=== PATIENT | female | born 1950 | race Caucasian/White ===

== ENCOUNTER 2018-09-20 14:09 | Observation (INO) ==
--- NOTE | 2018-09-20 14:36 | Emergency Department Note ---
Disposition Clinical Impression: Chest pain Qualifiers: Chest pain type: unspecified Qualified Code(s): R07.9 - Chest pain, unspecified Disposition: Admitted As Inpatient Condition: Good Referrals: Noman Lazar MD [Primary Care Provider] - Forms: ED Satisfaction Letter Time of Disposition: 16:09 Chest Pain HPI - General Chief Complaint: ED Chest Pain Stated Complaint: chest pain into bilat jaw Time Seen by Provider: 09/20/18 14:13 Source: patient Mode of arrival: ambulatory Limitations: no limitations Vital Signs Reviewed: Yes Nursing Notes Reviewed: Yes - History of Present Illness HPI Narrative: 68-year-old female with history of borderline diabetes, hypertension, hyperlip idemia, family history of cardiovascular disease arrives to the emergency department complaining of retrosternal chest pain radiating to the left side of her chest and into her jaw bilaterally that started roughly one half hour prior to arrival to the emergency department. No associated shortness of breath, diaphoresis or abdominal pain or nausea. Patient states she has never had anything like this in the past. No previous cardiovascular testing to include no stress testing, no cardiac stenting. The patient states she took 1 baby aspirin home. She denies any other complaints at this time including unilateral excellent, history of DVT or PE, hemoptysis, recent surgeries or immobilization s. No other acute complaints noted at this time. Patient is resting comfortably and she is chest pain-free at this time. Severity scale (1-10): 3 - Related Data Home Medications Medication Instructions Recorded Confirmed Aspirin 81 mg PO DAILY 04/23/16 07/22/16 Citalopram [CeleXA] 20 mg PO DAILY 04/23/16 07/22/16 Cyanocobalamin (Vitamin B-12) 1,000 mcg SL DAILY 04/23/16 07/22/16 [Vitamin B-12] Glucosamn/Condroitn/C/Mn/[place] 1,500 mg PO DAILY 04/23/16 07/22/16 [[facility] Glucosamine Chondroit Cplt] Losartan/HCTZ [Hyzaar 50-12.5 1 each PO DAILY 04/23/16 07/22/16 Tablet] Melatonin 10 mg SL HS PRN 04/23/16 07/22/16 Meloxicam [Mobic] 15 mg PO DAILY 04/23/16 07/22/16 Multivitamin [Multivitamins] 1 tab PO DAILY 04/23/16 07/22/16 [place]-3/Dha/Epa/Fish Oil [Fish Oil] 1,000 mg PO DAILY 04/23/16 07/22/16 Omeprazole [PriLOSEC] 20 mg PO DAILY 04/23/16 07/22/16 Potassium Citrate [Urocit-K] 20 meq PO BID 07/22/16 07/22/16 Pravastatin Sodium [Pravachol] 40 mg PO DAILY 07/22/16 07/22/16 Solifenacin Succinate [Vesicare] 10 mg PO DAILY 07/22/16 07/22/16 Allergies Allergy/AdvReac Type Severity Reaction Status Date / Time Nickel Allergy See Unverified 04/23/16 08:13 Comments Sulfa (Sulfonamide Allergy Hives Unverified 04/23/16 08:13 Antibiotics) heparin AdvReac See Unverified 04/23/16 08:13 Comments All systems ED: reviewed and negative except as stated. Constitutional: Denies: fever, chills, weakness ENT ED: Denies: dysphagia Cardiovascular: Reports: chest pain. Denies: palpitations, dyspnea on exertion, orthopnea, edema Respiratory: Denies: cough, dyspnea, sputum production Gastrointestinal: Denies: abdominal pain, nausea, vomiting Genitourinary: Denies: urgency, dysuria Musculoskeletal: Denies: back pain, neck pain Integumentary: Denies: rash Neurological: Denies: headache Chest Pain PMH - Past Medical History Medical history: Reports: arthritis, hyperlipidemia, hypertension Surgical history: Reports: appendectomy, , cholecystectomy, knee replacement, orthopedic, other Psychiatric history: Reports: depression - Social History Smoking Status: Never smoker Alcohol use: Reports: none Drug use: Reports: none Physical Exam - General Limitations: no limitations General appearance: alert, in no apparent distress - Head Head exam: atraumatic, normocephalic, normal inspection - Eye Eye exam: Present: normal appearance, PERRL, EOMI - ENT ENT exam: normal exam, normal oropharynx, mucous membranes moist - Neck Neck exam: Present: normal inspection, full ROM, trachea midline - Chest Chest inspection: Present: normal inspection - Respiratory Respiratory exam: Present: normal lung sounds bilaterally - Cardiovascular Cardiovascular exam: Present: regular rate, normal rhythm, normal heart sounds - Abdominal Exam Abdominal exam: Present: soft, Non-Tender. Absent: tenderness, distention, guarding, rebound, rigidity - Extremities Exam Extremities exam: Present: normal inspection, full ROM. Absent: tenderness, pedal edema - Neurological Exam Neurological exam: Present: alert, oriented X3 - Skin Skin exam: Present: warm, dry, intact, normal color Course Vital Signs Temperature 98.1 F 09/20/18 14:12 Pulse Rate 94 09/20/18 14:12 Respiratory Rate 16 09/20/18 14:12 Blood Pressure 130/82 09/20/18 14:12 O2 Sat by Pulse Oximetry 97 09/20/18 14:12 Temperature 98.1 F 09/20/18 14:12 Pulse Rate 89 09/20/18 14:29 Respiratory Rate 16 09/20/18 14:29 Blood Pressure 111/71 09/20/18 14:29 O2 Sat by Pulse Oximetry 99 09/20/18 14:29 Oxygen Delivery Oxygen Delivery Room Air Chest Pain - MDM Narrative Medical decision making narrative: Patient's workup in the emergency department demonstrates findings concerning for ACS given the patient's symptoms. Workup in the emergency department observed subcutaneous process. Given the patient's symptoms we will admit the patient to the hospital. She is chest pain-free. - Lab Data Lab results reviewed: Yes I reviewed the patient's lab results. Result diagrams: 09/20/18 15:19 09/20/18 14:25 Lab Results 09/20/18 09/20/18 09/20/18 Range/Units 14:15 14:25 14:36 WBC (4.3-11.1) K/mcL RBC (3.82-4.97) M/mcL Hgb (11.5-15.4) g/dL Hct (35.3-44.9) % MCV (83.0-100.0) fL MCH (28.0-33.3) pg MCHC (31.6-35.5) g/dL RDW (11.5-14.5) % Plt Count MPV Immature Gran % (0-4) % Seg Neutrophils % % Lymphocytes % % Monocytes % % Eosinophils % % Basophils % % Neutrophils # (1.6-8.9) K/mcL Lymphocytes # (0.6-4.6) K/mcL Monocytes # (0.0-1.3) K/mcL Eosinophils # (0.0-0.6) K/mcL Basophils # (0.0-0.2) K/mcL Plt Count ,Citrate (140-400) K/mcL PT TNP INR TNP APTT TNP Sodium 138 (136-145) mEq/L Potassium 4.1 (3.5-5.1) mEq/L Chloride 102 (98-107) mEq/L Carbon Dioxide 28 (23-29) mEq/L BUN 12 (8-23) mg/dL Creatinine 0.93 (0.60-1.20) mg/dL Est GFR ( Amer) > 60 (> 60) Est GFR (Non-Af Amer) > 60 (> 60) BUN/Creatinine Ratio 13 (6-26) Glucose 98 (70-105) mg/dL Calculated Osmolality 286 (280-300) Calcium 9.3 (8.6-10.3) mg/dL Troponin I < 0.03 (< 0.04) ng/mL Specimen Rejected Clotted 09/20/18 09/20/18 09/20/18 Range/Units 15:19 15:19 15:19 WBC 7.2 (4.3-11.1) K/mcL RBC 3.89 (3.82-4.97) M/mcL Hgb 11.8 (11.5-15.4) g/dL Hct 36.7 (35.3-44.9) % MCV 94.3 (83.0-100.0) fL MCH 30.3 (28.0-33.3) pg MCHC 32.2 (31.6-35.5) g/dL RDW 12.2 (11.5-14.5) % Plt Count TNP MPV TNP 8.8 L Immature Gran % 0.3 (0-4) % Seg Neutrophils % 53.6 % Lymphocytes % 35.6 % Monocytes % 7.5 % Eosinophils % 2.2 % Basophils % 0.8 % Neutrophils # 3.8 (1.6-8.9) K/mcL Lymphocytes # 2.6 (0.6-4.6) K/mcL Monocytes # 0.5 (0.0-1.3) K/mcL Eosinophils # 0.2 (0.0-0.6) K/mcL Basophils # 0.1 (0.0-0.2) K/mcL Plt Count ,Citrate 216 (140-400) K/mcL PT 10.7 INR 1.0 APTT 32.0 Sodium (136-145) mEq/L Potassium (3.5-5.1) mEq/L Chloride (98-107) mEq/L Carbon Dioxide (23-29) mEq/L BUN (8-23) mg/dL Creatinine (0.60-1.20) mg/dL Est GFR ( Amer) (> 60) Est GFR (Non-Af Amer) (> 60) BUN/Creatinine Ratio (6-26) Glucose (70-105) mg/dL Calculated Osmolality (280-300) Calcium (8.6-10.3) mg/dL Troponin I (< 0.04) ng/mL Specimen Rejected - Radiology Data Radiology results reviewed: Yes I reviewed the patient's radiology results. Chest X-Ray 09/20/18 14:15 IMPRESSION: No radiographic evidence of acute cardiopulmonary process. D/ / Nathaniel Busch MD / Nathaniel Bushc MD Interpreting Provider: Nathaniel Busch MD - EKG Data EKG attestation: Yes I reviewed and interpreted this EKG. EKG results narrative: Heart rate 84 beats for minute. Normal sinus rhythm. No ST elevation or ST depression noted. Inverted T-wave in lead 3 and V1. No acute changes noted.
[2018-09-20 15:10] LABS: BUN/Creatinine Ratio 13 (6-26); Blood Urea Nitrogen 12 mg/dL (8-23); Calcium 9.3 mg/dL (8.6-10.3); Carbon Dioxide 28 mEq/L (23-29); Chloride 102 mEq/L (98-107); Glucose 98 mg/dL (70-105); Osmolality,Calculated 286 (280-300); Potassium 4.1 mEq/L (3.5-5.1); Sodium 138 mEq/L (136-145); eGFR For Non-African Americans > 60 (> 60)
[2018-09-20 15:12] LABS: Troponin I < 0.03 ng/mL (< 0.04)
[2018-09-20 15:32] LABS: Basophils # 0.1 K/mcL (0.0-0.2); Basophils % 0.8 %; Eosinophils # 0.2 K/mcL (0.0-0.6); Eosinophils % 2.2 %; Hematocrit 36.7 % (35.3-44.9); Hemoglobin 11.8 g/dL (11.5-15.4); Immature Granulocytes % 0.3 % (0-4); Lymphocytes # 2.6 K/mcL (0.6-4.6); Lymphocytes % 35.6 %; Mean Corpuscular HGB Conc 32.2 g/dL (31.6-35.5); Mean Corpuscular Hemoglobin 30.3 pg (28.0-33.3); Mean Corpuscular Volume 94.3 fL (83.0-100.0); Monocytes # 0.5 K/mcL (0.0-1.3); Monocytes % 7.5 %; Neutrophils # 3.8 K/mcL (1.6-8.9); Red Blood Count 3.89 M/mcL (3.82-4.97); Red Cell Distribution Width 12.2 % (11.5-14.5); Segmented Neutrophils % 53.6 %
[2018-09-20 15:37] LABS: Mean Platelet Volume 8.8 fL (9.4-12.4)
[2018-09-20 15:39] LABS: Prothrombin Time 10.7 Seconds (9.4-12.1)
--- NOTE | 2018-09-20 16:01 | Emergency Department Note ---
Disposition Clinical Impression: Chest pain Qualifiers: Chest pain type: unspecified Qualified Code(s): R07.9 - Chest pain, unspecified Disposition: Admitted As Inpatient Condition: Good Referrals: Noman Lazar MD [Primary Care Provider] - Forms: ED Satisfaction Letter General Adult HPI - General Chief complaint: ED Chest Pain Stated complaint: chest pain into bilat jaw Time Seen by Provider: 09/20/18 14:13 Source: patient Mode of arrival: ambulatory Limitations: no limitations - History of Present Illness Pain Scale: 3 - Related Data Home Medications Medication Instructions Recorded Confirmed Aspirin 81 mg PO DAILY 04/23/16 07/22/16 Citalopram [CeleXA] 20 mg PO DAILY 04/23/16 07/22/16 Cyanocobalamin (Vitamin B-12) 1,000 mcg SL DAILY 04/23/16 07/22/16 [Vitamin B-12] Glucosamn/Condroitn/C/Mn/[place] 1,500 mg PO DAILY 04/23/16 07/22/16 [[facility] Glucosamine Chondroit Cplt] Losartan/HCTZ [Hyzaar 50-12.5 1 each PO DAILY 04/23/16 07/22/16 Tablet] Melatonin 10 mg SL HS PRN 04/23/16 07/22/16 Meloxicam [Mobic] 15 mg PO DAILY 04/23/16 07/22/16 Multivitamin [Multivitamins] 1 tab PO DAILY 04/23/16 07/22/16 [place]-3/Dha/Epa/Fish Oil [Fish Oil] 1,000 mg PO DAILY 04/23/16 07/22/16 Omeprazole [PriLOSEC] 20 mg PO DAILY 04/23/16 07/22/16 Potassium Citrate [Urocit-K] 20 meq PO BID 07/22/16 07/22/16 Pravastatin Sodium [Pravachol] 40 mg PO DAILY 07/22/16 07/22/16 Solifenacin Succinate [Vesicare] 10 mg PO DAILY 07/22/16 07/22/16 Allergies Allergy/AdvReac Type Severity Reaction Status Date / Time Nickel Allergy See Unverified 04/23/16 08:13 Comments Sulfa (Sulfonamide Allergy Hives Unverified 04/23/16 08:13 Antibiotics) heparin AdvReac See Unverified 09/20/16 08:13 Comments Constitutional: Denies: fever, chills, weakness ENT ED: Denies: dysphagia Cardiovascular: Reports: chest pain. Denies: palpitations, dyspnea on exertion, orthopnea, edema Respiratory: Denies: cough, dyspnea, sputum production Gastrointestinal: Denies: abdominal pain, nausea, vomiting Genitourinary: Denies: urgency, dysuria Musculoskeletal: Denies: back pain, neck pain Integumentary: Denies: rash Neurological: Denies: headache Past Medical History - Past Medical History Medical history: Reports: arthritis, hyperlipidemia, hypertension Surgical history: Reports: appendectomy, , cholecystectomy, knee replacement, orthopedic, other Psychiatric history: Reports: depression - Social History Smoking Status: Never smoker Smokeless Tobacco Status: No Alcohol use: Reports: none Drug use: Reports: none Physical Exam - General Limitations: no limitations General appearance: alert, in no apparent distress Course Vital Signs Temperature 98.1 F 09/20/18 14:12 Pulse Rate 94 09/20/18 14:12 Respiratory Rate 16 09/20/18 14:12 Blood Pressure 130/82 09/20/18 14:12 O2 Sat by Pulse Oximetry 97 09/20/18 14:12 Temperature 98.1 F 09/20/18 14:12 Pulse Rate 89 09/20/18 14:29 Respiratory Rate 16 09/20/18 14:29 Blood Pressure 111/71 09/20/18 14:29 O2 Sat by Pulse Oximetry 99 09/20/18 14:29 Oxygen Delivery Oxygen Delivery Room Air Medical Decision Making - Lab Data Result diagrams: 09/20/18 15:19 09/20/18 14:25 Lab Results 09/20/18 09/20/18 09/20/18 Range/Units 14:15 14:25 14:36 WBC (4.3-11.1) K/mcL RBC (3.82-4.97) M/mcL Hgb (11.5-15.4) g/dL Hct (35.3-44.9) % MCV (83.0-100.0) fL MCH (28.0-33.3) pg MCHC (31.6-35.5) g/dL RDW (11.5-14.5) % Plt Count MPV Immature Gran % (0-4) % Seg Neutrophils % % Lymphocytes % % Monocytes % % Eosinophils % % Basophils % % Neutrophils # (1.6-8.9) K/mcL Lymphocytes # (0.6-4.6) K/mcL Monocytes # (0.0-1.3) K/mcL Eosinophils # (0.0-0.6) K/mcL Basophils # (0.0-0.2) K/mcL Plt Count ,Citrate (140-400) K/mcL PT TNP INR TNP APTT TNP Sodium 138 (136-145) mEq/L Potassium 4.1 (3.5-5.1) mEq/L Chloride 102 (98-107) mEq/L Carbon Dioxide 28 (23-29) mEq/L BUN 12 (8-23) mg/dL Creatinine 0.93 (0.60-1.20) mg/dL Est GFR ( Amer) > 60 (> 60) Est GFR (Non-Af Amer) > 60 (> 60) BUN/Creatinine Ratio 13 (6-26) Glucose 98 (70-105) mg/dL Calculated Osmolality 286 (280-300) Calcium 9.3 (8.6-10.3) mg/dL Troponin I < 0.03 (< 0.04) ng/mL Specimen Rejected Clotted 09/20/18 09/20/18 09/20/18 Range/Units 15:19 15:19 15:19 WBC 7.2 (4.3-11.1) K/mcL RBC 3.89 (3.82-4.97) M/mcL Hgb 11.8 (11.5-15.4) g/dL Hct 36.7 (35.3-44.9) % MCV 94.3 (83.0-100.0) fL MCH 30.3 (28.0-33.3) pg MCHC 32.2 (31.6-35.5) g/dL RDW 12.2 (11.5-14.5) % Plt Count TNP MPV TNP 8.8 L Immature Gran % 0.3 (0-4) % Seg Neutrophils % 53.6 % Lymphocytes % 35.6 % Monocytes % 7.5 % Eosinophils % 2.2 % Basophils % 0.8 % Neutrophils # 3.8 (1.6-8.9) K/mcL Lymphocytes # 2.6 (0.6-4.6) K/mcL Monocytes # 0.5 (0.0-1.3) K/mcL Eosinophils # 0.2 (0.0-0.6) K/mcL Basophils # 0.1 (0.0-0.2) K/mcL Plt Count ,Citrate 216 (140-400) K/mcL PT 10.7 INR 1.0 APTT 32.0 Sodium (136-145) mEq/L Potassium (3.5-5.1) mEq/L Chloride (98-107) mEq/L Carbon Dioxide (23-29) mEq/L BUN (8-23) mg/dL Creatinine (0.60-1.20) mg/dL Est GFR ( Amer) (> 60) Est GFR (Non-Af Amer) (> 60) BUN/Creatinine Ratio (6-26) Glucose (70-105) mg/dL Calculated Osmolality (280-300) Calcium (8.6-10.3) mg/dL Troponin I (< 0.04) ng/mL Specimen Rejected Attestation Statement - Attestation Attestation: I examined this patient and my medical decision-making was reviewed with the Resident Physician. I agree with the documented findings, disposition and treatment plan as described except to the extent set forth below. 68 year old female presents to the ED with complaints of exertional dyspnea with chest pressure and diaphoresis. HEart score is moderate and trop negative, non ischemic EKG. We will admit to medicine for CP r/o ACS, Currently she is chest pain free
[2018-09-20] MEDS ORDERED: Aspirin 325 MG TABLET PO ONE (16:08)
--- NOTE | 2018-09-20 16:40 | Internal Med History&Physical ---
Date of Encounter: 09/20/18 Time of Encounter: 16:35 Internal Medicine - H&P: HPI Chief complaint: chest pain Admitted From: Home Plans for Post Hospital Care: Home History of present illness: Ms. Armstrong is a 68 year old female history of arthritis hyperlipidemia hypertension presenting emergency room for chest pain. Chest pain started the this afternoon 1 PM when she was sitting in the computer, located to left ches t, pressure-like, lasted an hour, pain was radiating to the bilateral jaws, she was concerned about having heart attack, denies diaphoresis no dizziness. Patient denies previous cardiac history, denies smoking, denies fever or chills no productive cough. Denies nausea vomiting diarrhea or constipation. No leg swellings no exertional chest pain and the shortness of breath. In emergency room chest x-ray is negative, EKG is normal sinus rhythm no ST elevation or depression. Troponin is negative. Lab was unremarkable. Patient is going to be admitted for rule out acute coronary syndrome. I will do echocardiogram and stress test at tomorrow. Past Med Surg Social Fam HX - Past Medical History Medical history: arthritis, hyperlipidemia, hypertension Psychiatric history: depression - Past Surgical History Surgical History: appendectomy, , cholecystectomy, knee replacement, orthopedic, other Additional surgical history: Tubal, T&A,kidney stone,bunionectomy,right thumb,lithotripsy - Social History Smoking Status: Never smoker Smokeless Tobacco Status: No Alcohol use: none Drug use: none Internal Medicine - H&P: Meds Aspirin 81 mg PO DAILY 04/23/16 [History] Citalopram [CeleXA] 20 mg PO DAILY 04/23/16 [History] Cyanocobalamin (Vitamin B-12) [Vitamin B-12] 1,000 mcg SL DAILY 04/23/16 [History] Glucosamn/Condroitn/C/Mn/[place] [[facility] Glucosamine Chondroit Cplt] 1,500 mg PO DAILY 04/23/16 [History] Losartan/HCTZ [Hyzaar 50-12.5 Tablet] 1 each PO DAILY 04/23/16 [History] Melatonin 10 mg SL HS PRN 04/23/16 [History] Meloxicam [Mobic] 15 mg PO DAILY 04/23/16 [History] Multivitamin [Multivitamins] 1 tab PO DAILY 04/23/16 [History] [place]-3/Dha/Epa/Fish Oil [Fish Oil] 1,000 mg PO DAILY 04/23/16 [History] Omeprazole [PriLOSEC] 20 mg PO DAILY 04/23/16 [History] Potassium Citrate [Urocit-K] 20 meq PO BID 07/22/16 [History] Pravastatin Sodium [Pravachol] 40 mg PO DAILY 07/22/16 [History] Solifenacin Succinate [Vesicare] 10 mg PO DAILY 07/22/16 [History] Allergy/AdvReac Type Severity Reaction Status Date / Time Nickel Allergy See Unverified 04/23/16 08:13 Comments Sulfa (Sulfonamide Allergy Hives Unverified 04/23/16 08:13 Antibiotics) heparin AdvReac See Unverified 04/23/16 08:13 Comments All Systems PM: A 10-system review of systems was performed and is negative for pertinent findings except as documented above in the HPI. - Constitutional Vitals: Temp Pulse Resp BP Pulse Ox 98.1 F 88 16 127/69 96 09/20/18 14:12 09/20/18 16:17 09/20/18 16:17 09/20/18 16:17 09/20/18 16:17 General appearance: Present: A&O X 3, obese Exam: CONSTITUTIONAL: Patient appears as an age appropriate female well developed, in no acute distress. EYES Clear sclerae, bilateral pupils are equal, reactive to light and accommodation. Extraocular movements are intact RESPIRATORY: No accessory muscle use, bilateral clear to auscultation, no wheezing, no crackles/rales. CARDIOVASCULAR: Regular heart rate, normal S1 and S2, no murmurs GASTROINTESTINAL: bowel sounds present, soft, no tenderness. No hepatosplenomegaly. No bilateral CVA tenderness MUSCULOSKELETAL: Joints in normal range of motion, no clubbing, no edema, no cyanosis. Bilateral peripheral pulses 2+ LYMPHATIC no lymphadenopathy in neck, groin and axilla bilaterally, no thyromegaly. NEUROLOGIC: CN II to XII are grossly intact, no focal neurological deficit. Deep tendon reflexes 2+ bilaterally. Normal light touch sensation to upper and lower extremity PSYCHIATRIC: Oriented x3, with good insight, mood is euthymic. No hallucinations or delusions. SKIN: Skin warm and dry, no rashes, no open wound. Internal Med - H&P Results - Labs CBC & Chem 7: 09/20/18 15:19 09/20/18 14:25 Labs: Short CBC 09/20/18 Range/Units 15:19 WBC 7.2 (4.3-11.1) K/mcL Hgb 11.8 (11.5-15.4) g/dL Hct 36.7 (35.3-44.9) % Plt Count TNP Neutrophils # 3.8 (1.6-8.9) K/mcL BMP 09/20/18 14:25 Sodium 138 Potassium 4.1 Chloride 102 Carbon Dioxide 28 BUN 12 Creatinine 0.93 Glucose 98 Calcium 9.3 Cardiac Enzymes 09/20/18 Range/Units 14:25 Troponin I < 0.03 (< 0.04) ng/mL - Impressions ITS Impressions Chest X-Ray 09/20/18 14:15 IMPRESSION: No radiographic evidence of acute cardiopulmonary process. D/ / Nathaniel Busch MD / Nathaniel Busch MD Interpreting Provider: Nathaniel Busch MD - Assessment and plan (1) Chest pain Current Visit: Yes Status: Acute Assessment and plan: patient has risk factor for HTN, HLD, chest pain with jaw radation, will follow up trop, TTE Stress tomorrow Qualifiers: Chest pain type: unspecified Qualified Code(s): R07.9 - Chest pain, unspecified (2) Hypertension Current Visit: Yes Status: Acute Assessment and plan: contineu home meds Qualifiers: Hypertension type: essential hypertension Qualified Code(s): I10 - Essential (primary) hypertension (3) Hyperlipidemia Current Visit: Yes Status: Acute Assessment and plan: contineu home meds Qualifiers: Hyperlipidemia type: other hyperlipidemia Qualified Code(s): E78.49 - Other hyperlipidemia; E78.4 - Other hyperlipidemia (4) Obesity (BMI 35.0-39.9 without comorbidity) Current Visit: Yes Status: Chronic Assessment and plan: Lifestyle modification - Time Spent With Patient Total time spent is greater than 50% in coordination of care (as documented) at patient's floor/unit and/or counseling patient: Greater than 35 minutes
[2018-09-20] MEDS ORDERED: Nitroglycerin 0.4 MG TAB.SUBL SL PRN (16:48)
[2018-09-20] MEDS ORDERED: *HR* Morphine 2 MG/ML SYRINGE IVP PRN (16:48)
[2018-09-20] MEDS ORDERED: *HR* Heparin 5,000 UNIT/ML VIAL SQ SCH (17:00)
[2018-09-20] MEDS ORDERED: Potassium Citrate 10 MEQ TABLET.ER PO SCH (21:00)
[2018-09-21 03:22] LABS: Alanine Aminotransferase 11 Units/L (7-52); Albumin 3.8 g/dL (3.5-5.7); Albumin/Globulin Ratio 1.2 (1.1-2.2); Alkaline Phosphatase 52 Units/L (34-104); Aspartate Amino Transferase 14 Units/L (13-39); BUN/Creatinine Ratio 13 (6-26); Bilirubin,Total 0.3 mg/dL (0.3-1.0); Blood Urea Nitrogen 14 mg/dL (8-23); Calcium 9.4 mg/dL (8.6-10.3); Carbon Dioxide 31 mEq/L (23-29); Chloride 102 mEq/L (98-107); Globulin 3.1 g/dL (2.4-3.5); Glucose 93 mg/dL (70-105); Magnesium 2.2 mg/dL (1.6-2.6); Osmolality,Calculated 292 (280-300); Sodium 141 mEq/L (136-145); Total Protein 6.9 g/dL (6.4-8.9); eGFR For Non-African Americans 52 (> 60)
[2018-09-21 04:10] LABS: Basophils # 0.1 K/mcL (0.0-0.2); Basophils % 0.7 %; Eosinophils # 0.2 K/mcL (0.0-0.6); Eosinophils % 2.9 %; Hematocrit 34.6 % (35.3-44.9); Hemoglobin 11.1 g/dL (11.5-15.4); Immature Granulocytes % 0.3 % (0-4); Lymphocytes # 3.3 K/mcL (0.6-4.6); Lymphocytes % 43.8 %; Mean Corpuscular HGB Conc 32.1 g/dL (31.6-35.5); Mean Corpuscular Hemoglobin 30.2 pg (28.0-33.3); Mean Corpuscular Volume 94.3 fL (83.0-100.0); Mean Platelet Volume 10.7 fL (9.4-12.4); Monocytes # 0.6 K/mcL (0.0-1.3); Monocytes % 7.5 %; Neutrophils # 3.4 K/mcL (1.6-8.9); Platelet Count 128 K/mcL (140-400); Red Blood Count 3.67 M/mcL (3.82-4.97); Red Cell Distribution Width 12.2 % (11.5-14.5); Segmented Neutrophils % 44.8 %
[2018-09-21] MEDS ORDERED: Regadenoson 0.4 MG/5 ML SYRINGE IVP ONE (05:58)
[2018-09-21] MEDS ORDERED: Aspirin 81 MG TAB.CHEW PO SCH (09:00)
[2018-09-21] MEDS ORDERED: Losartan/HCTZ 50-12.5 TABLET PO SCH (09:00)
[2018-09-21] MEDS ORDERED: Cyanocobalamin (B-12) 1,000 MCG TABLET PO SCH (09:00)
[2018-09-21 10:36] VITALS: BP 128/85
--- NOTE | 2018-09-21 12:14 | Discharge Summary ---
- NOTES TO OUTPATIENT PROVIDER Notes to Outpatient Provider: Follow with PCP in one week. Orders not resulted at time of discharge: Pending orders 09/20/18 15:14 ECG 12 lead ECG [ECG] Stat 09/21/18 05:30 NM aziza perf SPECT multi [NM] Routine Date of Encounter: 09/21/18 Time of Encounter: 12:06 - Discharge Diagnosis (1) Chest pain Priority: Primary Status: Acute Qualifiers: Chest pain type: unspecified Qualified Code(s): R07.9 - Chest pain, unspecified (2) Hyperlipidemia Priority: Secondary Status: Acute Qualifiers: Hyperlipidemia type: other hyperlipidemia Qualified Code(s): E78.49 - Other hyperlipidemia; E78.4 - Other hyperlipidemia (3) Hypertension Priority: Secondary Status: Acute Qualifiers: Hypertension type: essential hypertension Qualified Code(s): I10 - Essential (primary) hypertension (4) Obesity (BMI 35.0-39.9 without comorbidity) Priority: Secondary Status: Chronic Hospital course: Ms. Armstrong is a 68 year old female history of arthritis hyperlipidemia hypertension presented emergency room for chest pain. Chest pain started y/d afternoon when she was sitting in front of the computer, located to left chest, pressure-like, lasted an hour, pain was radiating to the bilateral jaws, she was concerned about having heart attack, denies diaphoresis no dizziness. She was admitted in the hospital and placed on shuttle operator. Her serial troponin came back is negative. Her EKG did not show any acute ischemic changes. Since patient is high risk for ACS she did go for nuclear stress test which came back is negative. So will discharge her home in a stable condition today. Her chest pain seems to be most likely musculoskeletal. - Time Spent with Patient Total time spent providing and/or coordinating discharge services: - Discharge Medications Home Medications: Aspirin 81 mg PO DAILY 04/23/16 [History] Citalopram [CeleXA] 20 mg PO DAILY 04/23/16 [History] Cyanocobalamin (Vitamin B-12) [Vitamin B-12] 1,000 mcg SL DAILY 04/23/16 [History] Glucosamn/Condroitn/C/Mn/[place] [[facility] Glucosamine Chondroit Cplt] 1,500 mg PO DAILY 04/23/16 [History] Losartan/HCTZ [Hyzaar 50-12.5 Tablet] 1 each PO DAILY 04/23/16 [History] Multivitamin [Multivitamins] 1 tab PO DAILY 04/23/16 [History] [place]-3/Dha/Epa/Fish Oil [Fish Oil Dr 500 mg Softgel] 1,000 mg PO DAILY 04/23/16 [History] Potassium Citrate [Urocit-K] 10 meq PO TID 07/22/16 [History] Pravastatin Sodium [Pravachol] 80 mg PO DAILY 07/22/16 [History] Allopurinol [Zyloprim 100 MG] 100 mg PO DAILY 09/20/18 [History] Oxybutynin [Ditropan] 5 mg PO TID 09/20/18 [History] Allergies/Adverse Reactions: Allergy/AdvReac Type Severity Reaction Status Date / Time Nickel Allergy See Verified 09/20/18 19:53 Comments Sulfa (Sulfonamide Allergy Hives Verified 09/20/18 19:53 Antibiotics) heparin AdvReac See Verified 09/20/18 19:53 Comments Date of admission: 09/20/18 16:33 Primary care physician: Noman Lazar MD - Constitutional Vitals: Temp Pulse Resp BP Pulse Ox 98.5 F 90 18 128/85 96 09/21/18 10:34 09/21/18 10:34 09/21/18 10:34 09/21/18 10:34 09/21/18 10:34 General appearance: Present: A&O X 3, obese Exam: Gen: Alert, awake, Oriented to time,place and person Chest: Diminished breath sounds B/L, No wheezing, No crackles, No rales Heart: S1S2+ RRR No murmurs Abd: Soft, NT, BS +, No organomegaly Ext: No edema, pulses are palpable, No calf tenderness Neuro : Benign findings Skin: No rash. - Patient Status Disposition: Home, Self-Care Condition: Good Overall status at discharge: patient is back to baseline - Discharge Instructions Instructions: Chest Pain (DC), Chronic Hypertension (DC) Follow Up With: Noman Lazar MD [Primary Care Provider] - (APPT WR) - Diet and Activity Activity: increase activity as tolerated Diet: low salt diet
== END 2018-09-21 13:07 | disposition home or self-care (01) ==
LOC: 3BNU 14:09 → EMEROOARM 14:09 → SUATTDRO 16:33 → 3BNU 17:55
PROVIDERS: ADMIT Hospitalist; ATTEND Family Medicine